=== PATIENT | female | born 1985 | race Hispanic/Latino ===

== ENCOUNTER → 2025-08-28 | Outpatient (CLI) | payer BC ==
[~2025-08-28] MED LIST: GADOTERATE MEGLUMINE 10 MMOL/20 ML VIAL IV ONE
--- NOTE | 2025-08-29 01:18 | HMCIMG ---
EXAM: MAGNETIC RESONANCE IMAGING OF THE ABDOMEN WITH AND WITHOUT INTRAVENOUS CONTRAST Technique: Multiplanar multisequence magnetic resonance imaging of the abdomen was performed before and after intravenous administration of gadolinium-based contrast. Dynamic post-contrast arterial, portal venous, and delayed phase images were obtained. Diffusion-weighted imaging with apparent diffusion coefficient maps and T1- and T2-weighted sequences were included. Study quality is adequate for interpretation. Clinical Information: Disorder of the adrenal gland, unspecified. Findings: The liver measures approximately 13.8 centimeters and is normal in size and contour without focal hepatic lesion. The gallbladder is distended without wall thickening or pericholecystic fluid; intraluminal sludge is present; no gallstones are identified. There is no biliary ductal dilatation. The pancreas is normal in size and signal with a nondilated pancreatic duct. The spleen is normal in size and signal without focal lesion. The visualized stomach and bowel loops are unremarkable. The inferior vena cava and aorta are normal in course and caliber. The right adrenal gland is normal in morphology and signal. In the left suprarenal region there is a multiloculated predominantly cystic lesion with internal septations and mild peripheral enhancement measuring approximately 6.7 ??? 6.8 ??? 7.2 centimeters; the lesion demonstrates facilitated diffusion without restricted diffusion on apparent diffusion coefficient maps. The left adrenal gland is not separately visualized from the described left suprarenal lesion. The visualized osseous structures demonstrate mild degenerative changes without suspicious marrow-replacing lesion. No ascites and no pathologically enlarged lymph nodes are identified. Impression: * Multiloculated predominantly cystic left suprarenal mass measuring approximately 6.7 ??? 6.8 ??? 7.2 centimeters with internal septations and mild peripheral enhancement; the left adrenal is not separately identified. Imaging features favor an adrenal cyst or pseudocyst (for example, post-hemorrhagic), though a cystic adrenal neoplasm (including cystic pheochromocytoma or other adrenal cortical neoplasm with cystic degeneration) is not excluded on imaging alone. Lack of diffusion restriction supports a benign cystic process. Correlate clinically and biochemically to exclude a functional adrenal lesion (for example, plasma free metanephrines or 24-hour urinary fractionated metanephrines for pheochromocytoma; aldosterone/renin ratio if hypertensive with hypokalemia; cortisol assessment per endocrine protocol). * Right adrenal gland is normal. * Gallbladder sludge without evidence of acute cholecystitis. * Otherwise unremarkable magnetic resonance imaging of the abdomen aside from mild degenerative changes of the visualized spine. /Lenox Dale
== END | disposition home or self-care (01) ==
LOC: RAH 10:59
PROVIDERS: ATTEND Internal Medicine Hematology & Oncology
DX: E27.8 Other specified disorders of adrenal gland (principal); E27.9 Disorder of adrenal gland, unspecified; K82.8 Other specified diseases of gallbladder; K92.1 Melena; M47.816 Spondylosis without myelopathy or radiculopathy, lumbar region; Z83.3 Family history of diabetes mellitus
CPT/HCPCS: 74183; A9575